=== PATIENT | female | born 1960 | race Caucasian/White ===

== ENCOUNTER 2024-11-12 17:49 | Emergency (ER) | payer OTHER ==
[2024-11-12 18:03] VITALS: BP 148/76; PULSE 73; RESP 18; TEMP 97.5; BMI 28.7
[2024-11-12] MEDS ORDERED: ACETAMINOPHEN 325 MG TABLET (FP) ONE (18:45)
[2024-11-12] MEDS ORDERED: IBUPROFEN 400 MG TABLET (FP) PO ONE (18:45)
[2024-11-12] MEDS: ACETAMINOPHEN 325 MG TABLET (FP) PO ONE (18:47)
[2024-11-12] MEDS: IBUPROFEN 600 MG TABLET (FP) PO ONE (18:47)
== END 2024-11-12 19:39 | disposition home or self-care (01) ==
LOC: FER 17:49
DX: S69.91XA Unspecified injury of right wrist, hand and finger(s), initial encounter (principal); W01.0XXA Fall on same level from slipping, tripping and stumbling without subsequent striking against object, initial encounter; Y92.22 Religious institution as the place of occurrence of the external cause
CPT/HCPCS: 73110-TC-LT-FY; 73130-TC-LT-FY; 99283-25